=== PATIENT | female | born 1960 | race Caucasian/White ===

== ENCOUNTER 2025-06-23 15:48 | Emergency (ER) | payer OTHER ==
[2025-06-23 16:34] LABS: #Basophils 0.06 10x3/uL (0.0-0.2); #Eosinophils 0.10 10x3/uL (0.0-0.5); #Monocytes 1.34 10x3/uL (0.0-1.1); #Neutrophils 16.17 10x3/uL (1.5-8.4); %Basophils 0.3 % (0.0-2.0); %Eosinophils 0.5 % (0.0-6.0); %Lymphocytes 7.2 % (18.0-47.0); %Monocytes 6.9 % (0.0-10.0); %Neutrophils 83.0 % (40.0-75.0); Hematocrit 29.9 % (34.9-44.5); Hemoglobin 9.6 g/dL (12.0-15.5); Mean Corpuscular Hemoglobin 28.1 pg (27.0-33.0); Mean Corpuscular Volume 87.4 fL (81.6-98.3); Platelet Count 871 10x3/uL (150-450); Red Blood Cell (RBC) Count 3.42 10x6/uL (3.90-5.03); White Blood Cell (WBC) Count 19.49 10x3/uL (3.5-10.5)
[2025-06-23 16:45] LABS: ALT (SGPT) 56 U/L (Less than 34); AST (SGOT) 50 U/L (11-34); Albumin 2.7 g/dL (3.1-4.5); Alkaline Phosphatase 126 U/L (40-110); Anion Gap 17 mmol/L (10-20); BUN (Urea Nitrogen) 42 mg/dL (9.8-20.1); Bilirubin, Total 1.2 mg/dL (0.3-1.2); Calc. Creatinine Clearance 0 mL/min (70-130); Calcium 9.1 mg/dL (7.8-10.44); Carbon Dioxide 21 mmol/L (23-31); Chloride 102 mmol/L (98-107); Globulin 5.1 g/dL (2.4-3.5); Glucose 134 mg/dL (80-115); Potassium 3.8 mmol/L (3.5-5.1); Sodium 136 mmol/L (136-145)
[2025-06-23 16:53] LABS: Troponin I Less than 0.010 ng/mL (< 0.028)
[2025-06-23] MEDS ORDERED: Lidocaine 1% w/Epinephrine 1:200K 30 ML VIAL ONE (18:00)
[2025-06-23] MEDS ORDERED: Cefepime 2 GM VIAL ONE ×2 (18:50→18:55)
== END 2025-06-23 20:53 | disposition short-term general hospital (02) ==
LOC: CSHERS 15:48
DX: S22.32XA Fracture of one rib, left side, initial encounter for closed fracture (principal); S36.039A Unspecified laceration of spleen, initial encounter; J18.9 Pneumonia, unspecified organism; N17.9 Acute kidney failure, unspecified; W19.XXXA Unspecified fall, initial encounter
CPT/HCPCS: 32551; 36415; 71045; 71250; 74177; 80053; 83605; 84484; 85025; 87040; 96365; 96367; 96375; J0692; J3010; J3373